=== PATIENT | female | born 1965 | race Caucasian/White ===

== ENCOUNTER → 2022-08-04 10:24 | Outpatient (BNVA) | payer OTHER, SELFPAY | PROVIDERS: Visit Provider Internal Medicine | DX: M24.811 Other specific joint derangements of right shoulder, not elsewhere classified (principal); S39.012A Strain of muscle, fascia and tendon of lower back, initial encounter; W01.0XXA Fall on same level from slipping, tripping and stumbling without subsequent striking against object, initial encounter | CPT/HCPCS: 73030; 99203 ==

== ENCOUNTER → 2022-08-25 09:20 | Outpatient (BNVA) | payer OTHER, SELFPAY | PROVIDERS: PCP Internal Medicine; Visit Provider Internal Medicine | DX: M24.811 Other specific joint derangements of right shoulder, not elsewhere classified (principal); S39.012D Strain of muscle, fascia and tendon of lower back, subsequent encounter; W01.0XXD Fall on same level from slipping, tripping and stumbling without subsequent striking against object, subsequent encounter; M75.101 Unspecified rotator cuff tear or rupture of right shoulder, not specified as traumatic | CPT/HCPCS: 99202; 99213 ==

== ENCOUNTER → 2022-08-30 07:44 | Outpatient (BNVA) | payer OTHER, SELFPAY | PROVIDERS: PCP Internal Medicine; Visit Provider Internal Medicine | DX: M54.50 Low back pain, unspecified (principal); M43.16 Spondylolisthesis, lumbar region | CPT/HCPCS: 72100; 72170; 99214 ==

== ENCOUNTER → 2022-09-08 08:53 | Outpatient (BNVA) | payer OTHER, SELFPAY | PROVIDERS: PCP Internal Medicine; Visit Provider Internal Medicine | DX: Z13.89 Encounter for screening for other disorder (principal) ==

== ENCOUNTER 2022-09-13 07:00 | Outpatient (RCR) | payer OTHER, SELFPAY ==
--- NOTE | 2022-08-11 09:18 | MHC.PT.EP ---
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 SHE REPORTS THAT AT WORK SLIPPED ON ICE, FELL ONTO RIGHT KNEE AND HAND THEN FELL ONTO BACK. FELT PAIN IMMEDIATELY, CAME TO WORK CONNECTION BUT THEY WERE CLOSED SO SHE RETURNED HOME. PAIN CONTINUED TO BE QUITE SEVERE OVER THE NEXT FEW DAYS AND SHE RETURNED TO WORK CONNECTION LAST WEEK AND WAS REFERRED TO PT. PAIN WORSENS WITH LYING ON SIDES, PREFERS TO LAY FLAT ON BACK. PROLONGED STANDING OR SITTING INCREASES DISCOMFORT. MOVEMENT IMPROVES SYMPTOMS WELL HEAT. REPORTS SYMPTOMS AE IMPROVING BUT STILL UNCOMFORTABLE. UPON EXAM IMPAIRMENTS INCLUDE DECREASED ROM AND STRENGTH, POSTURAL ASYMMETRY, SOFT TISSUE RESTRICTION AND INCREASED PAIN. FUNCTIONAL LIMITATIONS INCLUDE DECREASED ABILITY TO PERFORM HOMEMAKING AND SELF CARE TASKS, DECREASED ABILITY TO PERFORM WORK TASKS INCLUDING PUSHING, PULLING, REACHING AND BENDING. SHE REPORTS DECREASED PARTICIPATION IN RECREATIONAL AND COMMUNITY ACTIVITIES AND DISRUPTED SLEEP. Frequency and Duration: The patient will be seen 2 X WEEK FOR 4 WEEKS Short Term Goals: INITIATE HEP AND PROMOTE SELF MANAGEMENT OF SYMPTOMS Jail Goals: IN 4 WEEKS FULL, PAIN FREE LUMBAR ROM TO PERFORM FULL FUNCTIONAL SQUAT WITH CORRECT MECHANICS AND NO VERBAL CUING TO PERFORM 3:3 LIFTING TASKS UP TO 50# WITHOUT CUING AND PAIN NO GREATER THAN 2/10 INDEPENDENT HEP AND SELF MANAGEMENT OF ANY RESIDUAL SYMPTOMS Treatment Plan: Modalities to reduce pain, spasms and effusion. Manual therapy to restore motion and function. Therapeutic exercise to improve strength and flexibility. Neuromuscular re-education for posture and balance. Therapeutic activities to return to functional activities of daily living. Electronically signed by: SALVADOR PIMENTEL PT DPT Please sign and return to therapist. Thank you for your referral.
--- NOTE | 2022-10-07 08:28 | MHC.PT.DC ---
[facility] [place] Office [place] Office [place] Office [address] Ev Tovar [address] [phone] F: [phone] F: [phone] F: [phone] F: [phone] Physical Therapy Discharge Report Diagnosis: LUMBAR STRAIN (KP) Date of Surgery: N/A Date of Evaluation: 08/11/22 Date of Discharge: 10/07/22 Treatments to Date: 7 Cancellations to Date: 3 No Shows to Date: 1 Discharge Status: Patient Elected to Stop Discharge Summary: No showed for last scheduled visit, current status is unknown Electronically signed by: Emily Valladares PT, DPT Please sign and return to therapist. Thank you for your referral.
== END 2022-10-07 08:27 | disposition home or self-care (01) ==
LOC: HO.PT 07:00
PROVIDERS: PCP Internal Medicine; Visit Provider Internal Medicine
DX: S39.012D Strain of muscle, fascia and tendon of lower back, subsequent encounter (principal); Z91.81 History of falling
CPT/HCPCS: 97110; 97140; 97161

== ENCOUNTER → 2022-09-27 08:38 | Outpatient (BNVA) | payer OTHER, SELFPAY | PROVIDERS: PCP Internal Medicine; Visit Provider Internal Medicine | DX: M54.50 Low back pain, unspecified (principal); M25.811 Other specified joint disorders, right shoulder | CPT/HCPCS: 99213 ==

== ENCOUNTER → 2022-10-11 08:37 | Outpatient (BNVA) | payer OTHER, SELFPAY | PROVIDERS: PCP Internal Medicine; Visit Provider Internal Medicine | DX: M54.50 Low back pain, unspecified (principal); M25.811 Other specified joint disorders, right shoulder | CPT/HCPCS: 99213 ==

== ENCOUNTER → 2022-10-25 08:12 | Outpatient (BNVA) | payer OTHER, SELFPAY | PROVIDERS: PCP Internal Medicine; Visit Provider Internal Medicine | DX: M54.9 Dorsalgia, unspecified (principal); R32 Unspecified urinary incontinence | CPT/HCPCS: 99213 ==

== ENCOUNTER → 2022-11-08 08:05 | Outpatient (BNVA) | payer OTHER, SELFPAY | PROVIDERS: PCP Internal Medicine; Visit Provider Internal Medicine | DX: M54.9 Dorsalgia, unspecified (principal); G54.9 Nerve root and plexus disorder, unspecified | CPT/HCPCS: 99213 ==

== ENCOUNTER → 2022-12-06 08:02 | Outpatient (BNVA) | payer OTHER, SELFPAY | PROVIDERS: PCP Internal Medicine; Visit Provider Internal Medicine | DX: M54.50 Low back pain, unspecified (principal); G54.9 Nerve root and plexus disorder, unspecified; Z91.81 History of falling | CPT/HCPCS: 99213 ==

== ENCOUNTER → 2023-01-03 08:08 | Outpatient (BNVA) | payer OTHER, SELFPAY | PROVIDERS: PCP Internal Medicine; Visit Provider Internal Medicine | DX: M54.50 Low back pain, unspecified (principal) | CPT/HCPCS: 99213 ==

== ENCOUNTER → 2023-01-31 08:08 | Outpatient (BNVA) | payer OTHER, SELFPAY | PROVIDERS: PCP Internal Medicine; Visit Provider Internal Medicine | DX: M54.9 Dorsalgia, unspecified (principal); Z91.81 History of falling | CPT/HCPCS: 99213 ==